=== PATIENT | female | born 1995 | race Caucasian/White ===

== ENCOUNTER 2017-08-11 00:50 | Emergency (ER) | payer OTHER ==
[~2017-08-11] VITALS: Ht 157.5 cm; Wt 65.8 kg
--- NOTE | 2017-08-11 01:23 | ED UPPER/LOWER EXTREMITY COMPL ---
History of Present Illness General Chief Complaint: Laceration Procedure Stated Complaint: " I NEED STICHES ON MY KNEE" RT KNEE S/P FALL Source: patient Exam Limitations: no limitations Vital Signs & Intake/Output Vital Signs & Intake/Output Vital Signs Date Time Temp Pulse Resp B/P B/P Pulse O2 O2 Flow FiO2 Mean Ox Delivery Rate 08/11 0125 98.1 78 18 127/74 98 Room Air Allergies Coded Allergies: No Known Allergies (08/11/17) Reconcile Medications Cephalexin (Keflex) 500 MG CAPSULE 1 CAP PO 4 TIMES/DAY INFECTION PREVENTION X 1 WEEK Ibuprofen 600 MG TABLET 1 TAB PO TID PRN PAIN with food Triage Nurses Notes Reviewed? yes Onset: Abrupt Duration: hour(s): Timing: single episode today Severity: moderate Pain/Injury Location: Right: Knee. Method of Injury: incised, laceration Modifying Factors: Improves With: rest. Worsens With: movement. Associated Symptoms: swelling HPI: 22 yo woman presents with right knee laceration. She reports that she cut her knee while sleeding. "We ended up in some grass... Not sure how I cut my knee." She notes she is able to ambulate without problem. She is otherwise well. Past History Medical History Any Pertinent Medical History? see below for history Surgical History Surgical History: non-contributory Family History Hx Contributory? No Review of Systems Review of Systems Constitutional: Reports: no symptoms. EENTM: Reports: no symptoms. Respiratory: Reports: no symptoms. Cardiovascular: Reports: no symptoms. Gastrointestinal/Abdominal: Reports: no symptoms. Genitourinary: Reports: no symptoms. Musculoskeletal: Reports: no symptoms. Skin: Reports: no symptoms. Neurological/Psychological: Reports: no symptoms. Hematologic/Endocrine: Reports: no symptoms. Immunological: Reports: no symptoms. All Other Systems: Reviewed and Negative Physical Exam Physical Exam General Appearance: well developed/nourished, mild distress Head: atraumatic Eyes: Bilateral: normal appearance. Ears, Nose, Throat: normal pharynx, normal ENT inspection, hearing grossly normal Neck: normal inspection, supple Cardiovascular/Respiratory: regular rate/rhythm Back: normal inspection Leg Right: right knee with irregular laceration 4cm. no sign of infection. no foreign body. ROM is normal. no ligamental/tendon compromise. Skin: intact, normal color, warm/dry Lymphatic: no anterior cervical devin Progress Differential Diagnosis: laceration vs other. Plan of Care: Orders Procedure Date/time Status URINE 08/11 204 Complete Laboratory Tests 08/11/17206: Urine Test NEGATIVE Diagnostic Imaging: Viewed by Me: Radiology Read. Discussed w/RAD: Radiology Read. Radiology Impression: NO FB, NO FX PATIENT: MAHI SAPP PRESENT AGE: 22 PATIENT ACCOUNT NO: [id number] : 97 LOCATION: [facility] ORDERING PHYSICIAN: Juaquin Villegas MD SERVICE DATE: 08/11/17 EXAM TYPE: RAD - XRY-KNEE COMPLETE RIGHT EXAMINATION: XR KNEE, RIGHT CLINICAL INFORMATION: Laceration. Question foreign body. COMPARISON: None TECHNIQUE: Four views of the right knee. FINDINGS: No acute fracture or subluxation. Compartmental joint spaces are maintained. Anterior soft tissue laceration overlies the patellar tendon. No radiopaque foreign body. No joint effusion. IMPRESSION: No fracture or malalignment. No radiopaque foreign body. DICTATED BY : Norbert Bains MD DATE/TIME DICTATED:08/11/17308 CIVIL RIGHTS ATTORNEY: ANGELICA DATE/TIME TRANSCRIBED:08/11/17308 CONFIDENTIAL, DO NOT COPY WITHOUT APPROPRIATE AUTHORIZATION. <Electronically signed in Other Vendor System> SIGNED BY: Norbert Bains MD 08/11/17312 Departure Departure Disposition: HOME OR SELF CARE Condition: Stable Clinical Impression Primary Impression: Laceration of knee, right Referrals: Patient Has No Primary Care Dr (PCP/Family) Departure Forms: Customer Survey General Discharge Information Prescriptions: Current Visit Scripts Cephalexin (Keflex) 1 CAP PO 4 TIMES/DAY #28 CAP X 1 WEEK Ibuprofen 1 TAB PO TID PRN PAIN #30 TAB with food Procedures Laceration/Wound Repair Laceration/Wound Repair: Wound Location: right knee Irrigated w/ Saline (ccs): 1000 Volume Anesthetic (ccs): 10 Wound Repaired With: sutures Suture Size/Type: 3:0, nylon Number of Sutures: 6 Date of Last Tetanus: 08/11/17 Tetanus Status: up to date
[2017-08-11 01:25] VITALS: BP 127/74
[2017-08-11] MEDS ORDERED: IBUPROFEN600 M1 PO (02:06)
[2017-08-11] MEDS ORDERED: KEFLEX500 M1 PO (02:06)
--- NOTE | 2017-08-11 03:13 | RADIOLOGY REPORT ---
EXAMINATION: XR KNEE, RIGHT CLINICAL INFORMATION: Laceration. Question foreign body. COMPARISON: None TECHNIQUE: Four views of the right knee. FINDINGS: No acute fracture or subluxation. Compartmental joint spaces are maintained. Anterior soft tissue laceration overlies the patellar tendon. No radiopaque foreign body. No joint effusion. IMPRESSION: No fracture or malalignment. No radiopaque foreign body.
== END 2017-08-11 03:45 ==
LOC: ERH 00:50
DX: S81.011A Laceration without foreign body, right knee, initial encounter (principal); W45.8XXA Other foreign body or object entering through skin, initial encounter; Y93.23 Activity, snow (alpine) (downhill) skiing, snowboarding, sledding, tobogganing and snow tubing; Y92.9 Unspecified place or not applicable
CPT/HCPCS: 73562-RT; 81025; 90471; 90714

== ENCOUNTER 2017-08-13 12:38 | Emergency (ER) | payer OTHER ==
[~2017-08-13] VITALS: Ht 157.5 cm; Wt 65.8 kg
[~2017-08-13 12:38] MED LIST: IBUPROFEN600 M1 PO; KEFLEX500 M1 PO
[2017-08-13 13:10] VITALS: BP 98/64
--- NOTE | 2017-08-13 13:52 | ED ANIMAL BITE/WOUND CHECK ---
History of Present Illness General Chief Complaint: Suture Removal/Wound Recheck Stated Complaint: WOUND CHECK Source: patient, old records Exam Limitations: no limitations Vital Signs & Intake/Output Vital Signs & Intake/Output Vital Signs Date Time Temp Pulse Resp B/P B/P Pulse O2 O2 Flow FiO2 Mean Ox Delivery Rate 08/13 1310 97.4 75 16 98/64 99 Room Air Allergies Coded Allergies: No Known Allergies (08/11/17) Reconcile Medications Cephalexin (Keflex) 500 MG CAPSULE 1 CAP PO 4 TIMES/DAY INFECTION PREVENTION X 1 WEEK Ibuprofen 600 MG TABLET 1 TAB PO TID PRN PAIN with food Triage Note: PT HERE FOR WOUND CHECK. PT HAS STITCHES IN HER RIGHT LOWER EXT. PLACED 2 DAYS AGO. Triage Nurses Notes Reviewed? yes Onset: Abrupt Duration: better Timing: recent history Is Injury an Animal Bite? No Severity: mild Severity Numbers: 3 : No Patient currently breastfeeds: No HPI: Patient is a 22-year-old female who presents to the emergency room stating that 2 days ago she was SLEDDING OUTSIDE and cut her right knee \ She presented to [facility] emergency room and was evaluated SHE received #6 to SUTURES TO THE RIGHT KNEE AND x-rays were negative for concerns of fracture per old records patient was given antibiotic prophylactic Keflex and was advised to have a wound check in 2 days Patient denies any fever active discharge states the pain has improved Past History Travel History Traveled to [place] past 21 day No Medical History Any Pertinent Medical History? none Neurological: NONE EENT: NONE Cardiovascular: NONE Respiratory: NONE Gastrointestinal: NONE Hepatic: NONE Renal: NONE Musculoskeletal: NONE Psychiatric: NONE Endocrine: NONE Blood Disorders: NONE Cancer(s): NONE MOUNTER CLARINETS/Reproductive: NONE Tetanus Vaccine: 08/11/17 Surgical History Surgical History: non-contributory Psychosocial History What is your primary language [place] Tobacco Use: Never used ETOH Use: denies use Illicit Drug Use: denies illicit drug use Family History Hx Contributory? No Review of Systems Review of Systems Constitutional: Reports: no symptoms. EENTM: Reports: no symptoms. Respiratory: Reports: no symptoms. Cardiovascular: Reports: no symptoms. GI: Reports: no symptoms. Genitourinary: Reports: no symptoms. Musculoskeletal: Reports: no symptoms. Skin: Reports: see HPI. Neurological/Psychological: Reports: no symptoms. Hematologic/Endocrine: Reports: no symptoms. Immunologic/Allergic: Reports: no symptoms. All Other Systems: Reviewed and Negative Physical Exam Physical Exam General Appearance: no apparent distress, comfortable Head: atraumatic Eyes: Bilateral: normal appearance. Ears, Nose, Throat: hearing grossly normal Neck: normal inspection Respiratory: no respiratory distress Extremities: evidence of injury Skin: intact Diagram Body: 1) Noted 2.5 cm well-healing laceration with #6 intact sutures no surrounding, erythema, warmth or discharge FULL active range of motion Progress Differential Diagnosis: abscess, cellulitis, joint infection, tenosysnovitis Plan of Care: On examination no concerns of infectious process patient was strongly advised to continue taking antibiotics and follow up as discussed and discharge instructions. Departure Departure Disposition: HOME OR SELF CARE Condition: Stable Clinical Impression Primary Impression: Visit for wound check Referrals: Patient Has No Primary Care Dr (PCP/Family) Additional Instructions: As discussed if YOU note signs of infection such as redness, pain, swelling, discharge return to emergency him, return to the emergency room in 7 days for suture removal. Keep area dry and clean YOU can continue previously prescribed antibiotic of Keflex Departure Forms: Customer Survey General Discharge Information
== END 2017-08-13 14:09 ==
LOC: ERH 12:38
DX: Z48.00 Encounter for change or removal of nonsurgical wound dressing (principal)